=== PATIENT | male | born 1970 | race African-American/Black ===

== ENCOUNTER 2017-10-27 22:16 | Emergency (ER) | payer MEDICAID ==
[2017-10-27] MEDS: SOD CHLORIDE 0.9% 1,000 ML IV (22:19)
[2017-10-27 22:33] LABS: ADD MAN DIFF? NO
[2017-10-27] MEDS: LABETALOL HCL 20MG INJ IV ×2 (22:41→23:00)
[2017-10-27 22:49] LABS: INR 0.87; PROTIME 11.9 Sec (11.9-14.9); PT RATIO 0.9
[2017-10-27 22:50] LABS: PARTIAL THROMBOPLASTIN TIME 23.5 Sec (25.0-35.0)
[2017-10-27 22:55] LABS: ANION GAP 16 (8-16); BLOOD UREA NITROGEN 19 mg/dl (7-20); CALCIUM 8.8 mg/dl (8.4-10.2); CARBON DIOXIDE 21 mmol/L (21-31); CHLORIDE 107 mmol/L (97-110); CREATININE 1.45 mg/dl (0.61-1.24); GLUCOSE 145 mg/dl (70-220); POTASSIUM 3.7 mmol/L (3.5-5.1); SODIUM 140 mmol/L (135-144)
[2017-10-27] MEDS: ONDANSETRON 4 MG INJ IV (23:01)
[2017-10-27] MEDS: morphine 4 MG/ML VIAL IV (23:02)
[2017-10-27 23:05] LABS: BASOPHILS % 0.4 % (0.0-2.0); EOSINOPHILS # 0.2 10^3/ul (0.0-0.5); EOSINOPHILS % 1.8 % (0.0-7.0); HEMATOCRIT 45.4 % (42.0-52.0); HEMOGLOBIN 14.8 g/dl (14.0-18.0); LYMPHOCYTES # 3.2 10^3/ul (0.8-2.9); LYMPHOCYTES % 33.2 % (15.0-51.0); MEAN CORPUSCULAR HEMOGLOBIN 28.1 pg (29.0-33.0); MEAN CORPUSCULAR HGB CONC 32.6 g/dl (32.0-37.0); MEAN CORPUSCULAR VOLUME 86.3 fl (82.0-101.0); MEAN PLATELET VOLUME 10.5 fl (7.4-10.4); MONOCYTE # 0.7 10^3/ul (0.3-0.9); MONOCYTES % 6.8 % (0.0-11.0); NEUTROPHIL # 5.5 10^3/ul (1.6-7.5); NEUTROPHILS % 57.4 % (39.0-77.0); PLATELET COUNT 232 10^3/UL (140-415); RED BLOOD COUNT 5.26 10^6/ul (4.70-6.10); RED CELL DISTRIBUTION WIDTH 12.5 % (11.5-14.5)
[2017-10-27 23:05] LABS: WHITE BLOOD COUNT 9.5 10^3/ul (4.8-10.8)
[2017-10-27 23:06] LABS: TROPONIN-I 0.014 ng/ml (0.00-0.12)
[2017-10-27] MEDS ORDERED: IODIXANOL LOCM 100 ML BTL (23:16)
[2017-10-27] MEDS ORDERED: SOD CHLORIDE 0.9% 100 ML (23:16)
[2017-10-27] MEDS: hydrALAzine 20 MG INJ IV (23:30)
[2017-10-28] MEDS: MANNITOL 25% 50 ML INJ IV* (00:26)
[2017-10-28] MEDS: DILTIAZEM-D5W 125MG/125ML DRIP 125 ML IV (00:32)
[2017-10-28] MEDS: niCARdipine-NS 0.1MG/ML DRIP 200 ML IV (01:07)
[2017-10-28] MEDS: hydrALAzine 20 MG INJ IV (01:11)
== END 2017-10-28 00:55 | disposition short-term general hospital (02) ==
LOC: E/R 10-28 00:55
DX: I60.9 Nontraumatic subarachnoid hemorrhage, unspecified (principal); I16.9 Hypertensive crisis, unspecified; N28.9 Disorder of kidney and ureter, unspecified; I10 Essential (primary) hypertension; R40.2132 Coma scale, eyes open, to sound, at arrival to emergency department; R40.2362 Coma scale, best motor response, obeys commands, at arrival to emergency department; R40.2252 Coma scale, best verbal response, oriented, at arrival to emergency department
CPT/HCPCS: 36415; 70450; 70496; 71045; 80048; 83036; 84484; 85025; 85610; 85730; 93005; 96374; 96375; 99291-25

== ENCOUNTER 2017-11-16 10:07 | Emergency (ER) | payer MEDICAID ==
[2017-11-16] MEDS: SOD CHLORIDE 0.9% 1,000 ML IV (10:54)
[2017-11-16 10:55] LABS: ADD MAN DIFF? NO
[2017-11-16 10:56] LABS: BASOPHILS % 0.6 % (0.0-2.0); EOSINOPHILS # 0.1 10^3/ul (0.0-0.5); EOSINOPHILS % 1.7 % (0.0-7.0); HEMATOCRIT 41.9 % (42.0-52.0); HEMOGLOBIN 13.8 g/dl (14.0-18.0); LYMPHOCYTES # 1.2 10^3/ul (0.8-2.9); LYMPHOCYTES % 22.7 % (15.0-51.0); MEAN CORPUSCULAR HEMOGLOBIN 28.7 pg (29.0-33.0); MEAN CORPUSCULAR HGB CONC 32.9 g/dl (32.0-37.0); MEAN CORPUSCULAR VOLUME 87.1 fl (82.0-101.0); MEAN PLATELET VOLUME 9.9 fl (7.4-10.4); MONOCYTE # 0.4 10^3/ul (0.3-0.9); MONOCYTES % 6.7 % (0.0-11.0); NEUTROPHIL # 3.7 10^3/ul (1.6-7.5); NEUTROPHILS % 67.9 % (39.0-77.0); PLATELET COUNT 425 10^3/UL (140-415); RED BLOOD COUNT 4.81 10^6/ul (4.70-6.10); RED CELL DISTRIBUTION WIDTH 12.3 % (11.5-14.5)
[2017-11-16 10:56] LABS: WHITE BLOOD COUNT 5.4 10^3/ul (4.8-10.8)
[2017-11-16 11:12] LABS: ANION GAP 17 (8-16); BLOOD UREA NITROGEN 15 mg/dl (7-20); CALCIUM 9.4 mg/dl (8.4-10.2); CARBON DIOXIDE 24 mmol/L (21-31); CHLORIDE 105 mmol/L (97-110); CREATININE 1.06 mg/dl (0.61-1.24); GLUCOSE 103 mg/dl (70-220); POTASSIUM 4.4 mmol/L (3.5-5.1); SODIUM 142 mmol/L (135-144)
[2017-11-16] MEDS: morphine 4 MG/ML VIAL IV (12:59)
== END 2017-11-16 13:25 | disposition home or self-care (01) ==
LOC: E/R 10:07
DX: R51 Headache (principal); I10 Essential (primary) hypertension
CPT/HCPCS: 70450; 80048; 85025; 96374; 99285-25